=== PATIENT | female | born 1965 | race Caucasian/White ===

== ENCOUNTER → 2017-01-24 | Outpatient (REF) ==
[~2017-01-24] MED LIST: PAXIL 10MG10 MG PO
== END ==
LOC: ZLAB.WCH 18:07
DX: Z01.89 Encounter for other specified special examinations (principal)

== ENCOUNTER → 2017-03-13 | Outpatient (CLI) | payer BC ==
[~2017-03-13] MED LIST changes: +ASPIRIN 81M81 MG/TA2 PO; +LOPRESSOR 225 MG/TAB PO; +NITROSTAT0.4 MG/TAB SL; +XALATAN EYE DROPS OD
== END ==
LOC: COL.RAD 11:05
DX: E05.90 Thyrotoxicosis, unspecified without thyrotoxic crisis or storm (principal)
CPT/HCPCS: A9516

== ENCOUNTER → 2017-04-11 | Outpatient (REF) ==
[2017-04-11 19:14] LABS: THYROXINE (T4)-TOTAL 9.7 ug/dL (5.5-11.0)
[2017-04-11 19:28] LABS: THYROID STIMULATING HORMONE 0.745 uIU/mL (0.465-4.680)
== END ==
LOC: ZLAB.WCH 18:15
PROVIDERS: Family Medicine
DX: Z01.89 Encounter for other specified special examinations (principal)

== ENCOUNTER → 2019-02-22 | Outpatient (CLI) | payer BC | LOC: MC.RAD 09:55 | DX: N63.10 Unspecified lump in the right breast, unspecified quadrant (principal) | CPT/HCPCS: G0279 ==